=== PATIENT | male | born 1980 | race American Indian/Alaskan Native ===

== ENCOUNTER 2019-03-02 12:22 | Emergency (ER) | payer SELFPAY ==
--- NOTE | 2019-03-02 12:42 | Event Note ---
ED Screening Note ED Screening Note: llower molar dental pain rad to neck adenopathy abc intact controlling secretions difficulty opening mouth no fever, no tachy, no hypotension This initial assessment/diagnostic orders/clinical plan/treatment(s) is/are subject to change based on patients health status, clinical progression and re-assessment by fellow clinical providers in the ED. Further treatment and workup at subsequent clinical providers discretion. Patient/guardian urged not to elope from the ED as their condition may be serious if not clinically assessed and managed. Initial orders include: cbc/bmp eval in ACC
[2019-03-02 13:02] LABS: Hematocrit 40.9 % (35.5-45.6); Hemoglobin 14.4 gm/dl (11.8-15.2); Mean Corpuscular HGB Conc 35 % (32-34); Mean Corpuscular Volume 97 fl (84-94); Platelet Count 190 K/mm3 (140-440); Red Cell Distribution Width 12.5 % (13.2-15.2)
[2019-03-02] MEDS ORDERED: NACL 0.9% 1000 ML 1,000 ML IV ONE (13:19)
[2019-03-02] MEDS ORDERED: CLEOCIN 600 MG/50 mL 600 MG/50 ML BAG IV ONE (13:19)
--- NOTE | 2019-03-02 13:19 | Emergency Department Report ---
HPI - General Chief Complaint: Dental/Oral Time Seen by Provider: 03/02/19 13:18 ED Past Medical Hx - Past Medical History Previous Medical History?: No - Surgical History Past Surgical History?: Yes Hx Appendectomy: Yes - Social History Smoking Status: Current Every Day Smoker Substance Use Type: Alcohol ED Review of Systems ROS: Stated complaint: ABSCESS Other details as noted in HPI Physical Exam - Physical Exam Vital Signs: Vital Signs 03/02/19 12:35 Temperature 98.2 F Pulse Rate 83 Respiratory 16 Rate Blood Pressure 127/78 [Right] O2 Sat by Pulse 99 Oximetry ED Course Vital Signs 03/02/19 12:35 Temperature 98.2 F Pulse Rate 83 Respiratory 16 Rate Blood Pressure 127/78 [Right] O2 Sat by Pulse 99 Oximetry ED Medical Decision Making - Lab Data Result diagrams: 03/02/19 12:51 Critical care attestation.: If time is entered above; I have spent that time in minutes in the direct care of this critically ill patient, excluding procedure time. ED Disposition Condition: Stable
[2019-03-02 13:23] LABS: BUN/Creatinine Ratio 10; Blood Urea Nitrogen 10 mg/dL (9-20); Calcium 9.1 mg/dL (8.4-10.2); Hemolysis Index 33
[2019-03-02] MEDS ORDERED: DECADRON IV ONE (13:37)
[2019-03-02] MEDS ORDERED: TORADOL IV ONE (13:37)
[2019-03-02] MEDS ORDERED: PEPCID IV ONE (13:37)
--- NOTE | 2019-03-02 13:38 | Emergency Department Report ---
ED General Adult HPI - General Chief complaint: Dental/Oral Stated complaint: ABSCESS Time Seen by Provider: 03/02/19 13:18 Source: patient, RN notes reviewed Mode of arrival: Ambulatory Limitations: No Limitations - History of Present Illness Initial comments: This is a pleasant 38-year-old gentleman, not known to this provider previously, has no chronic medical conditions with the exception of tobacco consumption, distant history of appendectomy. Presents to the emergency room with a complaint of nontraumatic posterior mandibular pain, swelling, near tooth #17, feels like the left side of his neck is involved, and his bilateral sublingual region is involved. He endorses some discomfort with swallowing. He denies fevers, chills, shortness of breath, abdominal pain, extremity weakness, numbness. He does not endorse significant relief with [id number] NSAIDs. -: Gradual, days(s) Location: mouth, neck Radiation: non-radiation Severity scale (0 -10): 9 Quality: aching Consistency: constant Worsens with: movement - Related Data Allergies Allergy/AdvReac Type Severity Reaction Status Date / Time shellfish derived Allergy Anaphylaxis Verified 03/02/19 12:24 ED Review of Systems ROS: Stated complaint: ABSCESS Other details as noted in HPI Constitutional: denies: fever, malaise, weakness Eyes: denies: eye discharge ENT: throat pain, dental pain. denies: epistaxis, congestion Respiratory: denies: cough Cardiovascular: denies: chest pain Gastrointestinal: denies: abdominal pain Genitourinary: denies: frequency Musculoskeletal: denies: arthralgia Skin: denies: lesions Neurological: denies: weakness ED Past Medical Hx - Past Medical History Previous Medical History?: No - Surgical History Past Surgical History?: Yes Hx Appendectomy: Yes - Social History Smoking Status: Current Every Day Smoker Substance Use Type: Alcohol ED Physical Exam - General Limitations: No Limitations General appearance: alert, in no apparent distress - Head Head exam: Present: atraumatic, normocephalic - Eye Eye exam: Present: normal appearance, PERRL, EOMI. Absent: nystagmus - ENT ENT exam: Present: mucous membranes moist, TM's normal bilaterally, normal external ear exam, other (the patient is speaking in full sentences. There is no stridor. There is no dysphonia. Fractured tooth #17 is noted. Soft tissues around tooth #17 somewhat edematous. Patient minimally tender bilateral sublingual regions. There is no elevation of the base of the tongue. The neck is supple. Speaking in full sentences.). Absent: normal exam, normal orophraynx - Neck Neck exam: Present: normal inspection, full ROM, lymphadenopathy. Absent: tenderness, meningismus - Respiratory Respiratory exam: Present: normal lung sounds bilaterally. Absent: respiratory distress - Cardiovascular Cardiovascular Exam: Present: regular rate, normal rhythm, normal heart sounds. Absent: bradycardia, tachycardia, irregular rhythm, systolic murmur, diastolic murmur, rubs, gallop - GI/Abdominal GI/Abdominal exam: Present: soft. Absent: distended, tenderness, guarding, rebound, rigid - Rectal Rectal exam: Present: deferred - Extremities Exam Extremities exam: Present: normal inspection, full ROM, other (2+ pulses noted in the bilateral upper extremities. There is no long bony tenderness in the bilateral upper extremities.) - Back Exam Back exam: Present: normal inspection, full ROM. Absent: tenderness, CVA tenderness (R), CVA tenderness (L), paraspinal tenderness, vertebral tenderness - Neurological Exam Neurological exam: Present: alert, other (Extraocular movements intact. Tongue midline. No facial droop. Facial sensation intact to light touch in the V1, V2, V3 distribution bilaterally. 5 and 5 strength in 4 extremities.. Sensation is intact to light touch in 4 extremities.). Absent: motor sensory deficit - Psychiatric Psychiatric exam: Present: normal affect, normal mood - Skin Skin exam: Present: warm, dry, intact, normal color. Absent: rash ED Course Vital Signs 03/02/19 03/02/19 12:35 14:22 Temperature 98.2 F Pulse Rate 83 Respiratory 16 20 Rate Blood Pressure 127/78 [Right] O2 Sat by Pulse 99 Oximetry - Reevaluation(s) Reevaluation #1: 03/02/19 14:33 Differential diagnosis, including but not limited to: Gingival abscess, gingival cellulitis, deep space neck infection, dentalgia Assessment and plan: 38-year-old gentleman, with chronic fracture of tooth #17, now with soft tissue swelling and neck discomfort. He is afebrile with reassuring vital signs, no dysphonia, no elevation of the base of the tongue, protecting his airway and is well-appearing. Screening laboratory studies are reviewed and appreciated. "Shellfish" allergies reviewed and appreciated, no prior exposure to IV contrast that he is aware of. Very unlikely to have contrast intolerance, but we will premedicate. He started on antibiotic therapy. We will reassess after CT scan has resulted. Reevaluation #2: 03/02/19 15:49 Patient found to have left-sided submandibular abscess, concerning for early Hank's angina. Patient protecting his airway at this time, does not appear to be in any acute distress. However, given unpredictable nature of this disease, it is my pain that the patient has a potentially emergent condition at this time, and cannot be definitively managed at this hospital, as we do not have the necessary subspecialty services required to definitively manage this patient. Specifically, this facility does not have otolaryngology or oral maxillofacial surgery available. Therefore, the patient will be transferred to [facility], where the oral surgeon, Dr. Vidal has accepted the patient as a transfer. The patient is comfortable at this time, hemodynamically stable, and appears to be medically suitable for medical transportation/transfer to higher level of care. Discussed this with the patient, who verbalizes understanding. ED Medical Decision Making - Lab Data Result diagrams: 03/02/19 12:51 03/02/19 12:51 Vital Signs 03/02/19 03/02/19 12:35 14:22 Temperature 98.2 F Pulse Rate 83 Respiratory 16 20 Rate Blood Pressure 127/78 [Right] O2 Sat by Pulse 99 Oximetry Lab Results 03/02/19 03/02/19 Range/Units 12:51 12:51 WBC 16.7 H (4.5-11.0) K/mm3 RBC 4.20 (3.65-5.03) M/mm3 Hgb 14.4 (11.8-15.2) gm/dl Hct 40.9 (35.5-45.6) % MCV 97 H (84-94) fl MCH 34 H (28-32) pg MCHC 35 H (32-34) % RDW 12.5 L (13.2-15.2) % Plt Count 190 (140-440) K/mm3 Sodium 142 (137-145) mmol/L Potassium 5.1 H (3.6-5.0) mmol/L Chloride 105.2 (98-107) mmol/L Carbon Dioxide 24 (22-30) mmol/L Anion Gap 18 mmol/L BUN 10 (9-20) mg/dL Creatinine 1.0 (0.8-1.5) mg/dL Estimated GFR > 60 ml/min BUN/Creatinine Ratio 10 % Glucose 79 (75-100) mg/dL Calcium 9.1 (8.4-10.2) mg/dL - Radiology Data Radiology results: pending, report reviewed, image reviewed Print Report Referring Physician: MARIA D SLADE Patient Name: WILLY LOONEY Date of : 1980 Sex: Male Report Date: 2019-03-02 Report Status: Finalized Findings [facility] [address] [place] [address] Cat Scan Report Signed Patient: WILLY LOONEY MR#: [id number] 4 : 1980 Acct:[id number] Age/Sex: 38 / M ADM Date: 03/02/19 Loc: ED Attending Dr: Ordering Physician: MARIA D SLADE MD Date of Service: 03/02/19 Procedure(s): CT neck w con Accession Number(s): [id number] cc: MARIA D SLADE MD PROCEDURE: CT NECK W CON TECHNIQUE: Computerized axial tomography of the soft tissue neck was performed following the IV injection of iodinated nonionic contrast. CT DOSE LENGTH PRODUCT: 414.6 mGycm HISTORY: jaw pain, neck pain, tooth 17 broken, [id number] COMPARISONS: None . TECHNICAL QUALITY: Satisfactory. FINDINGS: Contrast-enhanced CT of the neck was performed following the intravenous administration of iodinated contrast. The pulmonary apices appear clear. No foreign body is seen. There is a fluid-density could represent abscess, axial image 60, coronal image 43, sagittal image 72 approximately 1.5 x 1.3 x 1.3 cm. Left anterior submandibular lymph node, axial image 65 measures 1.3 x 1.1 cm. Right submandibular lymph node measures 1.2 x 1.1 cm. The submandibular glands and parotid glands appear within normal limits. There is a left maxillary polyp versus mucous retention cysts but otherwise the paranasal sinuses appear clear. The mastoid air cells and middle ears appear clear. The airway is widely patent. There is a normal epiglottis. The larynx is within normal limits. No foreign body is seen. IMPRESSION: Left submandibular abscess This document is electronically signed by Roc Key MD., March 02 2019 03:41:41 PM ET Transcribed By: ANGEL Dictated By: ROC KEY MD Electronically Authenticated By: ROC KEY MD Signed Date/Time: 03/02/19 1543 Critical care attestation.: If time is entered above; I have spent that time in minutes in the direct care of this critically ill patient, excluding procedure time. ED Disposition Clinical Impression: Submandibular abscess [id number] Is pt being admited?: No Does the pt Need Aspirin: No Condition: Stable Referrals: KATRIN GEORGE MD [Primary Care Provider] - 3-5 Days
--- NOTE | 2019-03-02 15:43 | Cat Scan Report ---
PROCEDURE: CT NECK W CON TECHNIQUE: Computerized axial tomography of the soft tissue neck was performed following the IV inje ction of iodinated nonionic contrast. CT DOSE LENGTH PRODUCT: 414.6 mGycm HISTORY: jaw pain, neck pain, tooth 17 broken, [id number] COMPARISONS: None . TECHNICAL QUALITY: Satisfactory. FINDINGS: Contrast-enhanced CT of the neck was performed following the intravenous administration of iodinated contrast. The pulmonary apices appear clear. No foreign body is seen. There is a fluid-density could represent abscess, axial image 60, coronal image 43, sagittal image 72 approximately 1.5 x 1.3 x 1.3 cm. Left anterior submandibular lymph node, axial image 65 measures 1. 3 x 1.1 cm. Right submandibular lymph node measures 1.2 x 1.1 cm. The submandibular glands and parotid glands appear within normal limits. There is a left maxillary polyp versus mucous retention cysts but otherwise the paranasal sinuses bisi ear clear. The mastoid air cells and middle ears appear clear. The airway is widely patent. There is a normal epiglottis. The larynx is within normal limits. No for eign body is seen. IMPRESSION: Left submandibular abscess This document is electronically signed by Roc Key MD., March 02 2019 03:41:41 PM ET
[2019-03-02 17:31] VITALS: BP 133/84
== END 2019-03-02 18:12 | disposition short-term general hospital (02) ==
LOC: ED 12:22
DX: M27.2 Inflammatory conditions of jaws (principal); F17.200 Nicotine dependence, unspecified, uncomplicated; Z90.49 Acquired absence of other specified parts of digestive tract
CPT/HCPCS: 36415; 70491; 80048; 85027; 96365; 96375; 99285; J1100; J1885; J7030; Q9967